=== PATIENT | female | born 1960 | race Caucasian/White ===

== ENCOUNTER 2022-04-16 21:47 | Emergency (ER) | payer SELFPAY ==
[2022-04-16 21:48] VITALS: BP 131/62; PULSE 66; RESP 16; TEMP 36.3; O2SAT 100; BMI 34.9
--- NOTE | 2022-04-16 22:18 | ED.VIS.LOWEX ---
HPI History of Present Illness Chief Complaint: Lower Extremity Injury Detail of Chief Complaint: Atraumatic left lower extremity pain Informant: patient Occured/Mechanism Comment: Pain posterior left thigh and medial left leg and dorsum of the left foot Onset/Context/Timing Onset: Weeks (Several weeks) Timing: Intermittent and Waxes and wanes Quality of Pain: Dull Location: Previously described Current Severity: Gone Maximum Severity: Severe Worsened by: Standing on concrete floor Relieved by: Nothing specific Associated Symptoms Associated Symptoms: Negative for Parasthesia, Weakness or Loss of Funtion Narrative Narrative: Patient is a 61-year-old woman who presents with posterior left thigh, medial left leg and medial dorsal left foot pain. She denies back pain. She has history of meniscus injury. She has had her meniscus repaired. She denies history of DVT. She denies swelling, discoloration or rash. She denies fever, chills night sweats. She denies bowel bladder dysfunction. She does not have pain with walking. She denies dragging her left leg. Prior similar symptoms: No Recent Illness/Hospitalization: No PFSH PFSH Medical History no medical history no medical history Allergy/AdvReac Type Severity Reaction Status Date / Time No Known Allergies Allergy Verified 04/16/22 21:50 Social History (Updated 04/16/22 @ 22:[address] Eliezer De La Cruz MD) household members: spouse Smoking Status: Never smoker substance use type: does not use ROS ROS ED Constitutional Constitutional ED: Denies chills, fever(s), subjective, sweats or weight loss Eyes Eyes: Denies blurry vision, change in vision or diplopia Musculoskeletal Musculoskeletal: Denies arthralgias, back pain, myalgias or neck pain Integumentary Denies Abrasions or rash Neurologic Neurologic: Denies paresthesias or weakness Endocrine Endocrinology: Denies polydipsia, polyphagia or polyuria Hematologic/Lymphatic Hematologic/Lymphatic: Denies easy bleeding, easy bruising or lymphadenopathy Allergic/Immunologic Allergic/Immunologic ED: Denies mouth swelling, tongue swelling or urticaria EXAM Physical Exam Const Vital Signs: 04/16/22 21:48 04/16/22 21:48 Temperature 97.3 F L 97.3 F L Temperature Source Temporal Temporal Pulse Rate 66 66 Respiratory Rate 16 16 Blood Pressure 131/62 H 131/62 H Blood Pressure Mean 85 85 Pulse Ox 100 100 Oxygen Delivery Method Room Air Room Air Positive well nourished, well developed and obese; Negative for cachectic, contractures or unkempt General Appearance ED: well developed and NAD; Negative for unkempt, cachectic or contractures Nutritional Appearance: obese; Negative for cachectic HEENT Reports moist mucous membranes normocephalic and atraumatic Eyes PERRL Eyes Narrative: Extract muscles intact Resp normal respiratory effort Cardio regular rate and regular rhythm Extremity Extremity Narrative: There is no inguinal lymphadenopathy. There is no pain in the inguinal region. There is slight swelling of the left knee compared to the right. There is no effusion. The patella is not ballotable. There is no laxity with varus valgus stress testing. She complains of a pulling sensation posteriorly with valgus stress testing. Xavi's test was negative. Modified Víctor's test was negative. DP and PT pulse are palpable. Patient does have hair on her toes. There is no pain the patient the phalanges, metatarsal bones tarsal bones or lateral medial malleolus. There is minimal calf discomfort. There is no leg vein distention. There is no discoloration. There is no pain along the abductor canal or popliteal fossa. There is no fullness or mass in the popliteal fossa. General Extremety ED: Yes weight-bearing difficulty; Negative for cyanosis or edema General Extremity: weight-bearing difficulty; Negative for cyanosis or edema Neuro oriented x3, CN's II-XII intact bilaterally, moves all extremities and no sensory deficits noted Sensorium / Orientation: alert Motor Exam: strength 5/5 throughout Plantar Reflex: Downgoing: bilateral Psych mental status grossly normal Appearance: Negative for unkempt Skin no wounds Lesions: no lesions Rashes: no rashes MDM MDM MDM Narrative Medical decision making narrative: Patient has reproducible pain. She also has pain with plantar dorsiflexion of her foot and the calf and pain in the posterior thigh with lifting her leg against gravity. Suspect this is all musculoskeletal. Recommended ice and she is presently on an anti-inflammatory. Discharge Plan Triage Chief Complaint: Lower Extremity Injury ED Provider: Eliezer De La Cruz Dx/Rx/DC Orders Clinical Impression: Musculoskeletal pain of left lower extremity Instructions: ED Muscle Strain, Extremity Primary Care Provider: Consuelo Pierre NP Referrals: Consuelo Pierre NP, AUDIO VISUAL DIRECTOR-C [Primary Care Provider] - 10-14 Days if not better Disposition Disposition: Home, Self Care
== END 2022-04-16 22:40 | disposition home or self-care (01) ==
PROVIDERS: Emergency Provider Emergency Medicine; PCP Nurse Practitioner Family; Visit Provider Emergency Medicine
DX: M79.605 Pain in left leg (principal); M79.652 Pain in left thigh; M79.672 Pain in left foot
CPT/HCPCS: 99282

== ENCOUNTER → 2022-08-02 | Outpatient (CLI) | payer OTHER, SELFPAY ==
--- NOTE | 2022-08-02 11:11 | ECHOD_ITS ---
Reason For Study: CHEST PAIN Procedure This was a 2D Doppler, Color Flow transthoracic echocardiogram. Exam performed in department. Left Ventricle Normal size and thickness. The left ventricular ejection fraction is 50 %. Left ventricular systolic function is lower limits of normal. Right Ventricle Normal right ventricle. Atria The left and right atria are normal. Mitral Valve Trivial mitral valve insufficiency. Tricuspid Valve Normal tricuspid valve. Aortic Valve Trisinus/trileaflet aortic valve. Trivial aortic valve insufficiency. Pulmonic Valve Trivial pulmonic valve insufficiency. Great Vessels Normal sized aortic root. Pericardium/Pleural No pericardial effusion. MMode/2D Measurements & Calculations LVIDd: 5.2 cm IVSd: 0.96 cm Ao root diam: 2.9 cm LVIDs: 3.7 cm LVPWd: 1.1 cm FS: 29.3 % LAV(MOD-sp4): 60.1 ml LVAd ap4: 25.9 cm2 SV(MOD-sp4): 41.6 ml LVLd ap4: 7.2 cm EDV(MOD-sp4): 79.4 ml EDV(sp4-el): 78.7 ml LVAs ap4: 16.7 cm2 LVLs ap4: 6.4 cm ESV(MOD-sp4): 37.7 ml ESV(sp4-el): 37.1 ml EF(MOD-sp4): 52.5 % EF(sp4-el): 52.9 % SV(sp4-el): 41.7 ml LA A4 area: 20.0 cm2 LA dimension(2D): 4.1 cm RA A4 area: 10.7 cm2 Time Measurements MV dec time: 0.10 sec Doppler Measurements & Calculations MV E max richard: 52.9 cm/sec Lat Peak E' Richard: 8.4 cm/sec Med Peak E' Richard: 9.6 cm/sec MV A max richard: 51.9 cm/sec E/E' lat: 6.3 E/E' med: 5.5 MV E/A: 1.0 MV V2 max: 81.4 cm/sec Ao V2 max: 85.1 cm/sec MV max P.7 mmHg MV dec slope: 897.4 cm/sec2 Ao max P.9 mmHg MV V2 mean: 47.4 cm/sec Ao V2 mean: 61.9 cm/sec MV mean P.1 mmHg Ao mean P.7 mmHg MV V2 VTI: 30.7 cm Ao V2 VTI: 24.5 cm AV (velocity ratio): 0.72 LV V1 max: 59.4 cm/sec PA V2 max: 69.4 cm/sec LV V1 max P.4 mmHg PA V2 mean: 52.3 cm/sec LV V1 mean P.77 mmHg LV V1 mean: 41.1 cm/sec LV V1 VTI: 17.6 cm ECHO/Echo Complete Interpretation Summary The left ventricular ejection fraction is 50 %. Left ventricular systolic function is lower limits of normal. Ordering Physician: Consuelo Pierre Referring Physician: Consuelo Pierre Performed By: Laisha Novak RCS
== END | disposition home or self-care (01) ==
PROVIDERS: PCP Nurse Practitioner Family; Referring Provider Nurse Practitioner Family; Visit Provider Nurse Practitioner Family
DX: R00.2 Palpitations (principal); R01.1 Cardiac murmur, unspecified; I49.9 Cardiac arrhythmia, unspecified; R07.9 Chest pain, unspecified; I10 Essential (primary) hypertension; E78.5 Hyperlipidemia, unspecified
CPT/HCPCS: 93306